=== PATIENT | male | born 1960 | race Caucasian/White ===

== ENCOUNTER 2024-07-05 12:33 | Emergency (ER) | payer OTHER ==
[2024-07-05] MEDS: DEXAMETHASONE 10 MG/ML VIAL IM STA (14:40)
--- NOTE | 2024-07-05 15:07 | ED Physician Documentation ---
PD HPI LOWER EXT INJURY - Stated complaint Stated Complaint: L LEG PAIN - Chief complaint Chief Complaint: Ext Problem - History obtained from History obtained from: Patient - Additional information Additional information: The pt comes to the ED with CC of L hip/buttock pain, shooting down into his L upper leg. No back pain, though pt does have a h/o back issues. No pain in genitalia. No dysuria or hematuria. No bulge. No trauma. Has been going on for about 5 days. He has a h/o sciatica previously, but feels as though this is affecting his hip joint, too. He does note he was at an event and walking a lot more than usual, the day that this began. He has a h/o RA, which affects many of his joints. He has been ambulatory, but the pain has been persistent in his sciatic area. PD PAST MEDICAL HISTORY - Past Medical History Past Medical History: Yes Cardiovascular: Hypertension, High cholesterol Endocrine/Autoimmune: Type 2 diabetes Other Past Medical History: pulmonary embolism, DVT - Past Surgical History Past Surgical History: Yes Cardiovascular: Coronary stent - Present Medications Home Medications: Ambulatory Orders Medication Instructions Recorded Confirmed Atorvastatin [Lipitor] 40 mg PO QPM 07/05/24 07/05/24 Clopidogrel [Plavix] 75 mg PO DAILY 07/05/24 07/05/24 Cyclobenzaprine [Flexeril] 10 mg PO TID PRN #20 tablet 07/05/24 Famotidine 40 mg PO DAILY 07/05/24 07/05/24 HYDROcod/ACETAM 5/325 [[place] 5/325] 1 - 2 tablet PO Q6H PRN #14 tablet 07/05/24 Hydroxychloroquine [Plaquenil] 400 mg PO DAILY 07/05/24 07/05/24 Insulin Glargine [Lantus Solostar] 37 units SUBQ DAILY 07/05/24 07/05/24 Isosorbide Mononitrate ER [Imdur] 30 mg PO DAILY 07/05/24 07/05/24 Losartan Potassium 50 mg PO DAILY 07/05/24 07/05/24 Metformin HCl 1,000 mg PO BID 07/05/24 07/05/24 Metoprolol Succinate [Toprol Xl] 12.5 mg PO DAILY 07/05/24 07/05/24 Rivaroxaban [Xarelto] 20 mg PO DAILY 07/05/24 07/05/24 hydroCHLOROthiazide [Hydrodiuril] 25 mg PO DAILY 07/05/24 07/05/24 predniSONE [Deltasone] 10 mg PO [id number] #42 tab 07/05/24 - Allergies Allergies/Adverse Reactions: Allergies Allergy/AdvReac Type Severity Reaction Status Date / Time adalimumab [From Humira] AdvReac Respiratory Verified 07/05/24 12:53 niacin AdvReac Unknown Verified 07/05/24 12:53 simvastatin AdvReac Unknown Verified 07/05/24 12:53 - Social History Does the pt smoke?: Yes Smoking Status: Former smoker Does the pt drink ETOH?: Yes Does the pt have substance abuse?: No Substance Use and Type: Marijuana PD ED PE NORMAL - Vitals Vital signs reviewed: Yes - General General: Alert and oriented X 3, No acute distress, Well developed/nourished - HEENT HEENT: Atraumatic, PERRL, EOMI, Moist mucous membranes - Neck Neck: Supple, no meningeal sign - Cardiac Cardiac: Strong equal pulses - Respiratory Respiratory: No respiratory distress - Back Back: No spinal TTP - Derm Derm: Normal color, Warm and dry, No rash - Extremities Extremities: No deformity, No edema, No calf tenderness / cord, Other (TTP over L sciatic joint. No pain with unweighted ROM of hip. Pain with WB, but pt ambulatory.) - Neuro Neuro: Alert and oriented X 3 - Psych Psych: Normal mood, Normal affect Results - Vitals Vitals: Oxygen O2 Source Room air - Rads (name of study) L hip XR Relevant Findings:: Final report received, See rad report (Possibility of minimally displaced fx at femoral head/neck junction vs artifact) PD Medical Decision Making - ED course Complexity details: reviewed results, re-evaluated patient, considered differential, d/w patient ED course: The pt was treated symptomatically in the ED and sent for XR of L hip. The possibility of fx at jx of femoral head and neck was raised, vs finding being artifact. I did not feel that this correlated with the lack of trauma and the ability to ambulate. The pt's bones are not hypodense, nor is there a pathologic lesion, either of which could explain an atraumatic large bone fracture. In consideration of all of the above, I feel that the finding is artifactual. We have discussed symptomatic management at home, as well as the usual indications for return. Departure - Departure Disposition: Home, Self Care Clinical Impression: Hip pain Qualifiers: Laterality: left Qualified Code(s): M25.552 - Pain in left hip Sciatica Qualifiers: Laterality: left Qualified Code(s): M54.32 - Sciatica, left side Condition: Stable Instructions: Hip Osteoarthritis, ED Sciatica Prescriptions: predniSONE [Deltasone] 10 mg PO [id number] #42 tab Cyclobenzaprine [Flexeril] 10 mg PO TID PRN #20 tablet PRN Reason: Spasms HYDROcod/ACETAM 5/325 [[place] 5/325] 1 - 2 tablet PO Q6H PRN #14 tablet PRN Reason: Pain Comments: Your x-ray shows some mild arthritis but otherwise looks okay. You most likely aggravated your hip from the extra walking around on Tuesday and then as just snowballed in terms of inflammation and muscle spasm. I suspect your symptoms will blow over on their own, since they are fairly acute and you have not had issues prior; however, if you are still having significant pain in the next couple of weeks, you will need to follow-up with your primary doctor to discuss referral to orthopedics. In the meantime, you may take the medications for symptomatic control. I attempted to send your prescriptions to the [facility] in [place]; however, it was not in our system so I have given you a paper prescription to take with you. Forms: PCP List Discharge Date/Time: 07/05/24 15:48
--- NOTE | 2024-07-05 15:24 | XRAY Report ---
PROCEDURE: Hip w/Pelvis 2-3V LT INDICATIONS: L hip pain, RA TECHNIQUE: AP view the pelvis and lateral view of the left hip COMPARISON: None. FINDINGS: Diffuse osseous demineralization. Cortical irregularity at the medial margin of the left humeral head /neck junction with slightly shortened appearance of the left hip. Otherwise, no fracture or dislocation. 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 Moderate lower lumbar osteoarthritis. IMPRESSION: Possible minimally displaced fracture of the left femoral head/neck junction versus projectional remedios fact. CT of the left hip without contrast recommended for clarification. Reviewed by: Artie Kelly MD on 07/05/2024 3:22 PM PDT Approved by: Artie Kelly MD on 07/05/2024 3:22 PM PDT Station ID: [id number]
[2024-07-05] MEDS: HYDROcod/ACETAM 5/325 MG TABLET PO STA (15:43)
[2024-07-05 15:48] VITALS: BP 129/89; O2SAT 97
== END 2024-07-05 15:48 | disposition home or self-care (01) ==
LOC: ED 12:33
DX: M25.552 Pain in left hip (principal); M54.32 Sciatica, left side; Z87.891 Personal history of nicotine dependence; M16.0 Bilateral primary osteoarthritis of hip
CPT/HCPCS: 73502; 96372; 99283; 99284; A9270